=== PATIENT | male | born 1990 | race Caucasian/White ===

== ENCOUNTER 2017-02-05 14:52 | Emergency (ER) | payer OTHER ==
[~2017-02-05] VITALS: Ht 180.3 cm; Wt 88.0 kg
[2017-02-05 15:00] VITALS: BP 141/83
--- NOTE | 2017-02-05 16:47 | NUR ---
PATIENT TO ER BED 6
--- NOTE | 2017-02-05 17:01 | NUR ---
PT PRESENTS TO ER W/C/O LBP X2 DAYS. PT DENIES ANY FALL OR TRAUMA, STATES HE STRAINED HIS BACK 2 WEEKS AGO BUT NEVER SOUGHT TREATMENT. PT STATES PAIN RADIATES TO BILAT LE AND HE FEELS NUMBNESS IN BOTH LEGS. DENIES N/V/D; SKIN IS PINK/WARM/DRY; AAOX4 WITH EVEN AND STEADY GAIT; LUNGS CLEAR BL; HR EVEN AND REGULAR; PT DENIES ANY FEVER, CP, SOB, OR COUGH AT THIS TIME; PATIENT STATES PAIN OF 8/10 AT THIS TIME;PATIENT POSITIONED FOR COMFORT; HOB ELEVATED; BEDRAILS UP X2; BED DOWN. ALL MONITORS IN PLACED;ER MD MADE AWARE OF PT STATUS.
--- NOTE | 2017-02-05 17:11 | NUR ---
OLIVIA AT BEDSIDE.
[2017-02-05 17:21] VITALS: BP 128/75
== END 2017-02-05 17:20 | disposition home or self-care (01) ==
LOC: MED 14:52
DX: G89.29 Other chronic pain (principal); M54.5 Low back pain
CPT/HCPCS: 99283